=== PATIENT | female | born 1980 | race Caucasian/White ===

== ENCOUNTER 2018-08-09 12:10 | Emergency (ER) | payer MEDICAID ==
[~2018-08-09] VITALS: Ht 162.6 cm; Wt 49.9 kg
[2018-08-09] MEDS ORDERED: Zithromax250 MG PO (12:34)
[2018-08-09] MEDS ORDERED: Cheratussin AC118 ML PO (12:34)
== END 2018-08-09 12:41 | disposition home or self-care (01) ==
LOC: ER 12:10
DX: R05 Cough (principal)
CPT/HCPCS: 99283